=== PATIENT | male | born 1950 | race Caucasian/White ===

== ENCOUNTER → 2020-02-15 | Outpatient (CLI) | payer MEDICARE ==
[~2020-02-15] MED LIST: AMLO10TA8 PO; ASPI81TA45 PO; ATOR-2 PO; GLIP5TAB10 PO; LOSA1TAB22 PO; METF500T17 PO
== END | disposition home or self-care (01) ==
LOC: STAR 12:07
PROVIDERS: ATTEND Anesthesiology
DX: Z01.812 Encounter for preprocedural laboratory examination (principal); Z20.828 Contact with and (suspected) exposure to other viral communicable diseases
CPT/HCPCS: 36415; 87635